=== PATIENT | female | born 1980 | race Caucasian/White ===

== ENCOUNTER 2018-01-14 16:56 | Emergency (ER) | payer OTHER ==
[~2018-01-14] VITALS: Ht 167.6 cm; Wt 81.6 kg
[2018-01-14 17:01] VITALS: Ht 167.6 cm; Wt 81.6 kg
[2018-01-14] MEDS ORDERED: KLONOPIN1 MG PO (17:04)
[2018-01-14] MEDS ORDERED: NAPROSYN500 MG PO (19:08)
[2018-01-14] MEDS ORDERED: CYCLOBENZAPRINE10 MG PO (19:08)
[2018-01-14 19:45] VITALS: BP 121/61
[2018-01-20 08:30] VITALS: Ht 167.6 cm; Wt 81.6 kg
== END 2018-01-14 19:48 | disposition home or self-care (01) ==
LOC: EDSEX 16:56 → D.ER 16:56
DX: S16.1XXA Strain of muscle, fascia and tendon at neck level, initial encounter (principal); V43.52XA Car driver injured in collision with other type car in traffic accident, initial encounter; Y93.89 Activity, other specified; Y92.410 Unspecified street and highway as the place of occurrence of the external cause; S20.219A Contusion of unspecified front wall of thorax, initial encounter; S29.012A Strain of muscle and tendon of back wall of thorax, initial encounter

== ENCOUNTER 2018-01-19 20:44 | Inpatient (IN) | payer OTHER ==
[~2018-01-19] VITALS: Ht 167.6 cm; Wt 79.5 kg
--- NOTE | ~2018-01-19 | EC ---
PATIENT:ROSARIO CUMMINGS DATE OF SERVICE: 01/20/18 SEX: F MEDICAL RECORD: [id number] DATE OF : [birth year] LOCATION:[facility] [id number] AGE OF PATIENT: 37 ADMISSION DATE: 01/20/18 REFERRING PHYSICIAN: INTERPRETING PHYSICIAN: MADHURI CANDELARIO MD ECHOCARDIOGRAM REPORT ECHO CHARGES 4 ECHO COMPLETE Date: 01/20/18 CLINICAL DIAGNOSIS: CP, SOB, BLE EDEMA ECHOCARDIOGRAPHIC MEASUREMENTS (adult normal given) AC root (d.<3.7cm) 2.5 cm LV Septum d (<1.2 cm> 1.3 cm Valve Excursion 1.2 cm LV Septum (systole) 1.6 cm Left Atria (s.<4.0cm> 3.6 cm LVPW d(<1.2cm) 0.9 cm RV (d.<2.3cm) 2.4 cm LVPW (sytole) 0.9 cm LV diastole(<5.6CM) 5.3 cm MV E-F(>70mm/sec) cm LV systole 4.6 cm LVOT Diameter 1.8 cm MV exc.(>10mm) cm Est.ejection fraction (50-75%) % DOPPLER: LVIT cm/sec A 81 cm/sec E 95 cm/sec LA cm/sec RVSP 29.9 mmHg LVOT 136 cm/sec AOP1/2T m/s Asc. Ao 108 cm/sec RVOT 80 cm/sec RA cm/sec PA 106 cm/sec AV Gradient Peak 7.4 mmHg AV Mean 4.5 mmHg AV Area 1.7 cm MV Gradient Peak 4.8 mmHg MV Mean 3.7 mmHg MV Area cm COMMENTS: Raiser Helper: Walter MITCHELL Manager Child: Ramon Candelario TAPE# PACS Pericardial Effusion N DATE OF SERVICE: PROCEDURE: Transthoracic echocardiogram. FINDINGS: 1. The left ventricle is normal. 2. The left atrium is normal. 3. The right ventricle is mildly dilated. 4. The left atrium is normal. 5. The aortic valve is normal. ECHOCARDIOGRAM REPORT [id number] ROSARIO CUMMINGS 6. The mitral valve is normal. 7. The tricuspid valve is normal. 8. The right atrium is normal. 9. The pulmonic valve is normal. 10. There is no clinically significant pericardial effusion. Overall, the patient does have a mildly dilated right ventricle, but normal right ventricular function. Otherwise, normal echocardiogram for the patient's stated age. 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
[~2018-01-19 20:44] MED LIST: CYCLOBENZAPRINE10 MG PO; KLONOPIN1 MG PO; NAPROSYN500 MG PO
[2018-01-19 21:35] LABS: BASOPHILS 0.3 % (0-2); EOSINOPHILS 5.1 % (0-7); HEMATOCRIT 33.2 % (36.0-48.0); IMMATURE GRANULOCYTES 0.3 % (0-5); LYMPHOCYTES 36.5 % (15-50); MCH 31.8 pg (26.0-34.0); MCHC 33.1 g/dL (31.0-37.0); MEAN PLATELET VOLUME 9.9 fL (7.4-10.4); MONOCYTES 5.8 % (2-11); PLATELET COUNT 164 10x3/uL (130-400); RBC 3.46 10x6/uL (4.00-5.40); RDW 12.7 % (11.5-14.5); WBC 6.1 10x3/uL (4.8-10.8)
[2018-01-19 21:51] LABS: ALBUMIN 3.3 g/dL (3.4-5.0); ALKALINE PHOSPHATASE 68 U/L (46-116); ALT (SGPT) 20 U/L (10-68); BILIRUBIN - TOTAL 0.38 mg/dL (0.2-1.3); CALC OSMOLALITY 274 mosm/kg (275-300); CALCIUM 8.4 mg/dL (8.5-10.1); CARBON DIOXIDE 31.5 mmol/L (21.0-32.0); CHLORIDE - SERUM 105 mmol/L (98-107); CREATININE - SERUM 0.8 mg/dL (0.6-1.3); GLUCOSE 100 mg/dL (74-106); POTASSIUM - SERUM 4.2 mmol/L (3.5-5.1); PROTEIN - SERUM 6.7 g/dL (6.4-8.2); SODIUM 138 mmol/L (136-145); UREA NITROGEN 9 mg/dL (7-18); eGFR NON AFRICAN AMERICAN 85 mL/min (90-120)
[2018-01-19 22:06] LABS: APTT 29.6 SECONDS (22.8-39.4); CKMB 0.8 U/L (0.0-3.6); CREATINE KINASE 159 UL (21-215); INR 0.99 (0.85-1.17); PRO BNP 1084 pg/mL (0-125); PROTIME 12.7 SECONDS (11.6-15.0)
[2018-01-19 22:07] LABS: D-DIMER-QUANTITATIVE 1.62 ug/mLFEU (0.20-0.54)
[2018-01-19 22:11] LABS: TROPONIN-I < 0.017 ng/mL (0.000-0.060)
[2018-01-20] MEDS ORDERED: PROZAC20 MG PO (03:47)
[2018-01-20] MEDS ORDERED: RESTORIL15 MG PO (03:47)
[2018-01-20 04:00] VITALS: BP 115/80
[2018-01-20 05:56] VITALS: BP 115/80; BMI 28.3
[2018-01-20 08:30] VITALS: Ht 167.6 cm; Wt 79.5 kg
[2018-01-20 09:11] VITALS: BP 127/77
[2018-01-20 15:35] VITALS: BP 133/84
[2018-01-20 19:58] VITALS: BP 120/78
[2018-01-21] VITALS: BP 122/72
[2018-01-21 04:00] VITALS: BP 129/77
[2018-01-21 05:40] LABS: BASOPHILS 0.2 % (0-2); EOSINOPHILS 5.7 % (0-7); HEMATOCRIT 35.8 % (36.0-48.0); HEMOGLOBIN 11.8 g/dL (12-16); IMMATURE GRANULOCYTES 0.2 % (0-5); LYMPHOCYTES 40.4 % (15-50); MCH 31.6 pg (26.0-34.0); MONOCYTES 8.8 % (2-11); NEUTROPHILS 44.7 % (40-80); PLATELET COUNT 164 10x3/uL (130-400); RBC 3.73 10x6/uL (4.00-5.40); RDW 12.9 % (11.5-14.5)
[2018-01-21 05:41] LABS: WBC 4.2 10x3/uL (4.8-10.8)
[2018-01-21 06:19] LABS: ALBUMIN 2.9 g/dL (3.4-5.0); ALKALINE PHOSPHATASE 55 U/L (46-116); ALT (SGPT) 16 U/L (10-68); BILIRUBIN - TOTAL 0.39 mg/dL (0.2-1.3); CALC OSMOLALITY 276 mosm/kg (275-300); CALCIUM 8.5 mg/dL (8.5-10.1); CARBON DIOXIDE 28.2 mmol/L (21.0-32.0); CHLORIDE - SERUM 105 mmol/L (98-107); CREATININE - SERUM 0.8 mg/dL (0.6-1.3); GLUCOSE 92 mg/dL (74-106); POTASSIUM - SERUM 4.1 mmol/L (3.5-5.1); PROTEIN - SERUM 5.9 g/dL (6.4-8.2); SODIUM 140 mmol/L (136-145); UREA NITROGEN 7 mg/dL (7-18); eGFR NON AFRICAN AMERICAN 85 mL/min (90-120)
[2018-01-21 09:07] VITALS: BP 124/80
[2018-01-21 15:26] VITALS: BP 126/66
[2018-01-21 19:33] VITALS: BP 104/52
[2018-01-22 04:00] VITALS: BP 122/79
[2018-01-22] MEDS ORDERED: PHENERGAN25 M1 PO (06:37)
[2018-01-22] MEDS ORDERED: NORCO 10-325 TA1 TAB PO (06:37)
[2018-01-22 08:47] VITALS: BP 133/73
== END 2018-01-22 10:35 | disposition home or self-care (01) | DRG 565 ==
LOC: D.ER 20:44 → D.MS 01-20 03:20
PROVIDERS: Family Medicine
DX: S22.21XA Fracture of manubrium, initial encounter for closed fracture (principal); S27.892A Contusion of other specified intrathoracic organs, initial encounter; K80.20 Calculus of gallbladder without cholecystitis without obstruction; V89.2XXA Person injured in unspecified motor-vehicle accident, traffic, initial encounter